=== PATIENT | male | born 1960 | race Caucasian/White ===

== ENCOUNTER 2022-12-30 10:00 | Inpatient (IN) ==
[2022-12-30 10:21] LABS: ABS Lymphocytes 0.9 10^3/ul (1.0-4.8); ABS Monocytes 0.4 10^3/ul (0-0.8); ABS Neutrophils 3.3 10^3/ul (1.5-7.7); Eosinophil % 0.5 %; Hematocrit 43 % (42-52); Hemoglobin 14.6 g/dL (14.0-18.0); Lymphocyte % 19.4 %; Mean Corpuscular HGB Conc 34 g/dL (31-36); Mean Corpuscular Hemoglobin 32 pg (27-31); Mean Corpuscular Volume 94 fL (80-94); Mean Platelet Volume 7.5 fL (7.4-10.4); Platelet Count 242 10^3/uL (150-450); Red Blood Count 4.58 10^6 /uL (4.18-5.48); Red Cell Distribution Width 13 % (10-15); White Blood Count 4.6 10^3/uL (3.5-10.8)
[2022-12-30 10:28] LABS: INR 0.99 (0.88-1.18)
[2022-12-30] MEDS ORDERED: Heparin DRIP 25,000 UNITS BAG 25,000 UNITS/500 ML BAG IV SCH (10:30)
[2022-12-30] MEDS ORDERED: Metoprolol Tartrate 5 mg VIAL 5 ml VIAL (1 mg/ml) IV ONE (10:33)
[2022-12-30 10:43] LABS: High Sens Troponin Baseline 3 pg/mL (<20)
[2022-12-30 11:20] LABS: ALT 16 U/L (7-52); AST 19 U/L (13-39); Albumin 4.1 g/dL (3.2-5.2); Albumin/Globulin Ratio 2.4 (1-3); Alkaline Phosphatase 55 U/L (35-149); Anion Gap 3 mmol/L (2-11); Blood Urea Nitrogen 27 mg/dL (6-24); C Reactive Protein < 1.00 mg/L (<8.01); CO2 Carbon Dioxide 31 mmol/L (22-32); Calcium 8.9 mg/dL (8.6-10.3); Chloride 105 mmol/L (101-111); Creatinine, Serum 1.11 mg/dL (0.67-1.17); Globulin 1.7 g/dL (2-4); Glucose 97 mg/dL (70-100); Lipase 21 U/L (11.0-82.0); Magnesium 1.8 mg/dL (1.9-2.7); Phosphorus 2.6 mg/dL (2.5-5.0); Potassium 4.5 mmol/L (3.5-5.0); Sodium 139 mmol/L (135-145); Total Protein 5.8 g/dL (6.4-8.9); eGFR CKD-EPI 74.2 (>60)
[2022-12-30] MEDS ORDERED: Metoprolol Tartrate 5 mg VIAL 5 ml VIAL (1 mg/ml) IV PRN (11:26)
[2022-12-30] MEDS: Heparin 5000 UNITS/ML 1 mL VIAL IV SCH ×2 (11:27→22:18)
[2022-12-30] MEDS ORDERED: Magnesium Sulfate 2 gm BAG 2 GM/50 ML BAG IVPB ONE (11:55)
[2022-12-30 12:07] LABS: High Sensitivity Troponin 1 Hr 11 pg/mL (<20)
[2022-12-30] MEDS ORDERED: Lactated Ringers 1000 ml BAG 1,000 ML IV ONE (12:23)
[2022-12-30 12:47] LABS: Urine Appearance Clear; Urine Bilirubin Negative (Negative); Urine Blood Negative (Negative); Urine Color Yellow; Urine Glucose Negative (Negative); Urine Ketones Negative (Negative); Urine Nitrite Negative (Negative); Urine Protein Negative (Negative); Urine Specific Gravity 1.011 (1.002-1.030); Urine Urobilinogen Negative (Negative)
[2022-12-30 12:56] LABS: Cholesterol 178 mg/dL; HDL Cholesterol 49.4 mg/dL; LDL Cholesterol 112 mg/dL; Triglycerides 83 mg/dL
[2022-12-30 13:18] LABS: TSH Ultra Thyroid Stim Horm 1.72 mcIU/mL (0.34-5.60)
[2022-12-30 13:20] LABS: Free T4 0.88 ng/dL (0.61-1.12)
[2022-12-30 13:50] LABS: Activated Partial Thrombo Time 29.7 seconds (26.0-38.0)
[2022-12-31] MEDS ORDERED: NS 0.9% 1000 ml BAG 1,000 ML IV SCH (03:00)
[2022-12-31 04:30] LABS: ABS Lymphocytes 1.3 10^3/ul (1.0-4.8); ABS Monocytes 0.4 10^3/ul (0-0.8); ABS Neutrophils 3.1 10^3/ul (1.5-7.7); Hematocrit 42 % (42-52); Hemoglobin 14.4 g/dL (14.0-18.0); Lymphocyte % 26.5 %; Mean Corpuscular HGB Conc 34 g/dL (31-36); Mean Corpuscular Hemoglobin 32 pg (27-31); Mean Corpuscular Volume 94 fL (80-94); Mean Platelet Volume 7.5 fL (7.4-10.4); Nucleated Red Blood Cells % 0.1; Platelet Count 228 10^3/uL (150-450); Red Blood Count 4.49 10^6 /uL (4.18-5.48); Red Cell Distribution Width 13 % (10-15)
[2022-12-31 05:04] LABS: Calcium 8.5 mg/dL (8.6-10.3); Creatinine, Serum 0.89 mg/dL (0.67-1.17); Potassium 3.8 mmol/L (3.5-5.0); eGFR CKD-EPI 95.7 (>60)
[2022-12-31] MEDS ORDERED: Midazolam 10 mg/10 ml VIAL 1 mg/ml 10 ml VIAL (10 mg) IV SLOW PU ONE (10:00)
[2022-12-31] MEDS ORDERED: fentaNYL 100 mcg/2 ml 50 MCG/ML VIAL IV SLOW PU ONE (10:00)
[2022-12-31] MEDS ORDERED: VERAPAMIL 2.5 MG/ML 2 ML VIAL ** 5 mg/2 ml ONE (10:18)
[2022-12-31] MEDS ORDERED: Heparin 2 UNITS/ML 1000 mls 1,000 ML IV ONE ×2 (10:18→10:55)
[2022-12-31] MEDS ORDERED: Heparin 1,000 UNIT/ML 10 ml (10,000 UNITS) CATHLAB/DIALYSIS ONE (10:18)
[2022-12-31] MEDS ORDERED: fentaNYL 100 mcg/2 ml 50 MCG/ML VIAL ONE (10:18)
[2022-12-31] MEDS ORDERED: Midazolam 5 mg/5 ml VIAL 1 mg/ml 5 ml VIAL (5 mg) ONE (10:18)
[2022-12-31] MEDS ORDERED: Lidocaine 1% MPF 5 ML VIAL ONE (10:19)
[2022-12-31] MEDS ORDERED: nitroGLYCERIN DRIP 25,000 MCG/250 ML BTL ONE (10:19)
[2022-12-31] MEDS ORDERED: Iohexol 350 (CONTRAST) 100 ML PAK IV ONE (10:19)
[2022-12-31 14:20] VITALS: BP 107/71
== END 2022-12-31 14:00 | disposition home or self-care (01) | DRG 192 ==
LOC: ED 10:00 → EDHOLD 11:20 → ICU 19:09
PROVIDERS: ADMIT Internal Medicine Critical Care Medicine; ATTEND Internal Medicine Critical Care Medicine